=== PATIENT | female | born 1950 ===

== ENCOUNTER 2023-09-16 06:20 | Day surgery (SDC) | payer OTHER | END 2023-09-16 11:20 | disposition home or self-care (01) | LOC: AMB-ENDOS 06:20 | PROVIDERS: ATTEND Colon & Rectal Surgery | DX: D12.3 Benign neoplasm of transverse colon (principal); K64.8 Other hemorrhoids; K92.1 Melena; Z88.2 Allergy status to sulfonamides; Z88.6 Allergy status to analgesic agent; Z88.1 Allergy status to other antibiotic agents; Z91.013 Allergy to seafood; Z20.822 Contact with and (suspected) exposure to COVID-19 ==